=== PATIENT | male | born 1990 | race Two or more races ===

== ENCOUNTER 2018-07-05 02:29 | Emergency (ER) | payer BC, OTHER ==
[~2018-07-05] VITALS: Ht 165.1 cm; Wt 59.0 kg
[2018-07-05 02:45] VITALS: BP 140/95
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
[2018-07-05] MEDS ORDERED: IBUPROFEN600 MG ORAL (04:44)
[2018-07-05] MEDS ORDERED: HYDROCODON-ACE1 EA15 ORAL (04:44)
[2018-07-05] MEDS ORDERED: Tetanus/Diptheria/Pertussis Vaccine 0.5ml Syr IM ONE (04:45)
[2018-07-05] MEDS ORDERED: Norco 5mg/325mg tab ORAL ONE (04:45)
[2018-07-05] MEDS ORDERED: Bacitracin Oint UD TOPIC ONE (04:45)
[2018-07-05] MEDS ORDERED: CEPHALEXIN500 MG ORAL (04:45)
[2018-07-05 05:25] VITALS: BP 134/82
[2018-07-05 05:45] VITALS: BP 134/82
--- NOTE | 2018-07-05 11:44 | Diagnostic Imaging Report ---
Indication: Altered mental status, evidence of trauma Technique: Continuous helical CT scanning of the head was performed without intravenous contrast material. Axial and coronal 5 mm sections were generated. Radiation dose was minimized using automated exposure control Dose: Total Dose Length Product - DLP 1365.[address] Dose Index - CTDIvol(s) 70.38 mGy. Comparison: none Findings: The ventricular system is normal in size and configuration. There is no shift of midline structures. No abnormal extra-axial fluid collections are noted. There is no evidence of intracerebral bleeding. No other abnormal high or low density areas are noted within the brain. Normal steele-white differentiation. Visualized orbits and sinuses are unremarkable. The calvarium is intact Impression: Normal CT scan of the head without contrast material. This agrees with the preliminary interpretation provided overnight by [facility]. The CT scanner at [facility] is accredited by the [employer] and the scans are performed using protocols designed to limit radiation exposure to as low as reasonably achievable to attain images of sufficient resolution adequate for diagnostic evaluation.
--- NOTE | 2018-07-05 11:48 | Diagnostic Imaging Report ---
Indication: Pain, trauma Technique: 3 views of the left shoulder Comparison: none Findings: There is a slightly comminuted fracture of the midshaft clavicle. This is displaced by multiple over one bone width, impacted by about 3 cm. No humeral or scapular fracture demonstrated. Impression: Positive for left clavicular fracture This agrees with the impression left by the attending physician in the electronic medical record
--- NOTE | 2018-07-05 11:50 | Diagnostic Imaging Report ---
Indication: Pain in left hand after injury Technique: 3 views left hand Comparison: none Findings: No acute fractures. No dislocations. The joint spaces are preserved. Impression: Negative
== END 2018-07-05 05:45 | disposition home or self-care (01) ==
LOC: EDBD 02:29 → EMR 02:47
DX: S01.312A Laceration without foreign body of left ear, initial encounter (principal); S61.412A Laceration without foreign body of left hand, initial encounter; S42.022A Displaced fracture of shaft of left clavicle, initial encounter for closed fracture; V18.0XXA Pedal cycle driver injured in noncollision transport accident in nontraffic accident, initial encounter; Y93.55 Activity, bike riding; Y92.89 Other specified places as the place of occurrence of the external cause; Z23 Encounter for immunization; F10.120 Alcohol abuse with intoxication, uncomplicated
CPT/HCPCS: 29105; 70450; 90471; 90715; 99284